=== PATIENT | female | born 1995 | race Caucasian/White ===

== ENCOUNTER → 2021-05-21 | Outpatient (CLI) | payer OTHER ==
[~2021-05-21] MED LIST: BENTYL 20MG TAB20 MG PO; IMODIUM CAP 2 MG2 MG PO; MACROBID 100 M100 MG PO; PROTONIX40 M1 PO; PROTONIX40 MG PO; ZOFRAN ODT 4 MG4 MG SL
== END ==
LOC: KOH-I 11:04
DX: M25.511 Pain in right shoulder (principal)
CPT/HCPCS: 73030

== ENCOUNTER 2021-09-13 13:15 | Emergency (ER) | payer OTHER ==
[2021-09-13 14:12] LABS: RED BLOOD COUNT 4.79 M/UL (4.00-5.10); WHITE BLOOD COUNT 10.7 K/UL (4.5-11.0)
[2021-09-13 14:39] LABS: BUN/CREATININE RATIO 14 (0-10)
== END 2021-09-13 16:52 | disposition home or self-care (01) ==
LOC: ER1 13:15
PROVIDERS: Physician Assistant
DX: O02.1 Missed abortion (principal); Z3A.01 Less than 8 weeks gestation of pregnancy
CPT/HCPCS: 80053; 81001; 84702; 85025; 86900; 86901; 99284